=== PATIENT | female | born 1955 | race African-American/Black ===

== ENCOUNTER 2019-06-23 11:31 | Inpatient (IN) | payer BC ==
[~2019-06-23] VITALS: Ht 160 cm; Wt 50.8 kg
[2019-06-23] MEDS ORDERED: DEXTROSE 50% WATER 50ML SYRINGE IV ONE ×2 (13:57→14:00)
[2019-06-23 14:46] LABS: BASOPHILS % 0.9 % (0.0-2.0); EOSINOPHILS % 8.5 % (0.0-5.0); HEMATOCRIT. 34.6 % (36.0-48.0); HEMOGLOBIN. 11.7 g/dL (12.0-16.0); LYMPHOCYTES % 18.5 % (20.0-50.0); MEAN CORPUSCULAR HEMOGLOBIN 30.4 pg (28.0-32.0); MEAN CORPUSCULAR VOLUME 90.2 fL (81.0-99.0); MEAN PLATELET VOLUME 9.2 fl (7.4-10.4); MONOCYTES % 4.9 % (2.0-8.0); NEUTROPHILS % 67.2 % (40.0-76.0); PLATELET 287 x1000/uL (130-400); RED BLOOD CELL COUNT 3.84 mill/uL (4.2-5.4); RED CELL DISTRIBUTION WIDTH 13.1 % (11.6-14.6)
[2019-06-23 14:47] LABS: CHLORIDE 109 mEq/L (98-107)
[2019-06-23 14:51] LABS: ETHANOL BLOOD < 10 mg/dL
[2019-06-23] MEDS ORDERED: IOHEXOL-350 100 ML BOTTLE ONE (14:52)
[2019-06-23 14:54] LABS: LDL CHOLESTEROL 97 mg/dL (5-100)
[2019-06-23 16:08] LABS: CLARITY URINE CLEAR (CLEAR); COLOR URINE YELLOW (YELLOW); KETONES URINE NEGATIVE (NEGATIVE); LEUKOCYTE ESTERASE URINE NEGATIVE (NEGATIVE); NITRITE URINE NEGATIVE (NEGATIVE); OCCULT BLOOD URINE NEGATIVE (NEGATIVE); PH URINE 7.5 (4.5-8.0); PROTEIN URINE NEGATIVE (NEGATIVE); SPECIFIC GRAVITY URINE 1.025 (1.005-1.030); UROBILINOGEN URINE 0.2 E.U./dL (0.2-1.0)
[2019-06-23 16:23] LABS: *AMPHETAMINES SCREEN URINE NEGATIVE (NEGATIVE); *BARBITURATES SCREEN URINE NEGATIVE (NEGATIVE); *COCAINE SCREEN URINE NEGATIVE (NEGATIVE)
[2019-06-23 16:24] LABS: *BENZODIAZEPINES SCREEN URINE NEGATIVE (NEGATIVE); CANNABINOID URINE SCREEN PRESUMTIVE POSITIVE (NEGATIVE); METHADONE URINE SCREEN NEGATIVE (NEGATIVE); OPIATES URINE SCREEN NEGATIVE (NEGATIVE); PHENCYCLIDINE URINE SCREEN NEGATIVE (NEGATIVE)
[2019-06-23] MEDS ORDERED: DEXT 10% WATER 1,000 ML IV ONE (18:45)
[2019-06-23 22:41] VITALS: BP 116/72
[2019-06-24] VITALS (8 sets, daily range): BP systolic 109–131; BP diastolic 48–80
[2019-06-24] MEDS ORDERED: DEXTROSE 10% WATER 1,000 ML IV ONE (02:00)
[2019-06-24] MEDS ORDERED: IBUPROFEN 200MG TABLET PO PRN (02:00)
[2019-06-24] MEDS ORDERED: DEXT 10% WATER 1,000 ML IV SCH (03:45)
[2019-06-24] MEDS: DEXT 10% WATER 1,000 ML IV SCH (08:00)
[2019-06-24] MEDS: ASPIRIN 81MG TABLET PO SCH (08:26)
[2019-06-24] MEDS ORDERED: CYCLOBENZAPRINE 10MG TABLET PO SCH (17:00)
[2019-06-24] MEDS ORDERED: PREGABALIN 50 MG CAPSULE PO SCH (17:00)
[2019-06-25] VITALS (9 sets, daily range): BP systolic 105–127; BP diastolic 57–89
[2019-06-25] MEDS: DEXT 10% WATER 1,000 ML IV SCH ×2 (04:00→06:36)
[2019-06-25] MEDS: ASPIRIN 81MG TABLET PO SCH (08:20)
== END 2019-06-25 17:35 | disposition home or self-care (01) | DRG 301 ==
LOC: ER 11:42 → EDBEDREQ 16:23 → EDBEDREQSVC 16:43 → EDBEDREQ 16:43 → EDBEDREQSVC 16:46 → 5EST 17:51 → EDBEDREQ 17:54 → ENRESERV 19:49 → 5EST 23:24
PROVIDERS: ADMIT Family Medicine; ATTEND Family Medicine
DX: I72.0 Aneurysm of carotid artery (principal); E16.2 Hypoglycemia, unspecified; G25.3 Myoclonus; Z60.2 Problems related to living alone; F12.90 Cannabis use, unspecified, uncomplicated; J44.9 Chronic obstructive pulmonary disease, unspecified; I65.21 Occlusion and stenosis of right carotid artery; Z85.819 Personal history of malignant neoplasm of unspecified site of lip, oral cavity, and pharynx; Z92.21 Personal history of antineoplastic chemotherapy; Z93.1 Gastrostomy status; Z82.3 Family history of stroke
CPT/HCPCS: 36415; 70496; 70498; 70553; 71045; 80061; 80305; 80320; 82962; 83036; 83721; 84484; 93005; 93970; 96374; 99291; Q9967; G0480